=== PATIENT | male | born 1985 | race Caucasian/White ===

== ENCOUNTER 2016-06-02 08:26 | Day surgery (SDC) | payer OTHER ==
[~2016-06-02] VITALS: Ht 180.3 cm; Wt 83.9 kg
--- NOTE | 2016-06-02 06:59 | PCM.HPANE ---
Patient Data Surgeon Admitting Provider: Attending Provider:Juan R Bustamante MD Primary Care Physician:Nopcp Other Provider: Reason for Visit Abdominal Pain Ht/WT & BMI Body Mass Index Allergies Coded Allergies: ibuprofen (Verified Allergy, Intermediate, Abdominal Pain, 03/18/16) Past Anesthesia History Anesthesia History: Denies:: Anesthesia Reactions Diabetes History Hx Diabetes?: No MRSA MRSA: No Medications Active Scripts Hyoscyamine Sulfate (Levsin)0.125 Mg Tab0.125 Mg PO TID PAIN #14 TAB Prov:Nolberto Doty MD 03/18/16 Omeprazole 20 Mg Tablet.dr20 Mg PO DAILY #60 TABLET Ref 2 Prov:Javad Maldonado MD 03/15/16 Ondansetron ODT 8 Mg Tab.rapdis8 Mg PO Q4H PRN For Nausea #20 TABLET Ref 2 Prov:Javad Maldonado MD 03/15/16 Hyoscyamine SL (Levsin SL)0.125 Mg Tab.subl0.125 Mg SL TID PRN For Pain #10 TABLET Prov:Cherrie Ballesteros MD 01/11/16 History History of ENT Problems?: No Hx of Heart Problems?: Yes Cardiovascular History: Positive for:: Heart Murmur (per pt) Denies:: Cardiac Surgery Chest Pain Congestive Heart Failure Edema Hypertension Irregular Heartbeat Pacemaker Thrombophlebitis Respiratory History: Denies:: Tuberculosis Hx Neurologic Problems?: No Hx of GI Problems?: No Hx of Problems?: No Musculoskeletal History: Denies:: Back Injury Joint Replacement Musculoskeletal Trauma Hx of Psycho/Social Problems?: No Hx Surgeries?: Yes (two knee surgeries, broken bones, concussions, ) Other History: Denies:: Cancer Thyroid Disease History Blood Transfusions: Denies:: Blood Transfusions Hx Diabetes: No Hx Alcohol Use: NoHx Substance Use: No Smoking Status: Current Every Day Smoker Have You Smoked inLast 12 mo: Yes Stop/Bang Risk Assessment Category Category 1A: Patient has history of documented sleep apnea, and HAS NOT received any narcotic, sedative or anesthesia administration during this stay. Category 1B: Patient has history of documented sleep apnea, and HAS received any narcotic , sedative or anesthesia administration during this stay Category 2: Patient has SUSPECTED Obstructive Sleep Apnea, and HAS received any narcotic , sedative or anesthesia administration during this stay. Category 3: Patient has SUSPECTED Obstructive Sleep Apnea and HAS NOT received narcotic, sedative or anesthesia administration during this stay. Category 4: Outpatient in Procedural Areas with known sleep apnea or who screen positive for High Risk via the STOP/BANG questionnaire. Exam Exam General Appearance: Alert, Oriented X3, Cooperative, Severe Distress, Other ( crying) HEENT/AIRWAY: MP 2, Neck Movement (nl), Mouth Opening (nl) Lungs: Clear to Auscultation Heart: Exam Unremarkable Plan Impression Patient chart reviewed, patient interviewed and anesthestic plan with risks, benefits, and alternatives discussed, and informed consent obtained. ASA Physical Status: ASA2 Mod Systemic Disease Anesthetic Plan: GA Bene/Risks/Altern/Consents: Yes HP Complete Prior to Induction: Yes Anton Gaitan MD Jun 02, 2016 06:59
[~2016-06-02 08:26] MED LIST: HSC.125T PO; HYOS0.1281 SL; Lactated Ringer's 1,000 ML IV ONE; OMEP20TA86 PO; ONDA8TAB10 PO
[2016-06-02] MEDS ORDERED: fentaNYL-PF 50 mCg/mL 2 mL Inj ONE (08:27)
[2016-06-02] MEDS ORDERED: Glycopyrrolate 0.2 mg/mL 5 mL Inj ONE (08:27)
[2016-06-02] MEDS ORDERED: Ketamine 10 mg/mL 20 mL Inj ONE (08:27)
[2016-06-02] MEDS ORDERED: Propofol 10,000 mCg/mL 20 mL Inj ONE (08:27)
[2016-06-02 08:51] VITALS: BP 132/85; PULSE 71; RESP 22; O2SAT 99
[2016-06-02] MEDS ORDERED: 0.9% Sodium Chloride 1,000 ML IV PRN (09:24)
[2016-06-02] MEDS ORDERED: Sodium Chloride LOK Flush 10 mL Syringe IV PRN (09:25)
[2016-06-02] MEDS ORDERED: fentaNYL-PF 50 mCg/mL 2 mL Inj IVPUSH PRN (09:25)
--- NOTE | 2016-06-02 10:02 | PCM.ENDEGD ---
EGD Date of Service: Jun 02, 2016 Physician Juan R Bustamante MD Indication for Procedure Nausea vomiting Post Procedure Dx & Findings: Irregular Z line Procedure Esophagogastroduodenoscopy PROCEDURE IN DETAIL: The patient was placed in left lateral decubitus position. Bite block was placed. Scope lubricated, placed in posterior pharynx, passed through the cricopharyngeus and esophagus, slowly advanced the entire length of the gastric pouch, pylorus was identified, scope passed through the pylorus and descending portion of duodenum, withdrawn in the antrum, retroflexed upon itself for view of fundus and cardia. Scope was then withdrawn through the oropharynx. Esophagus was unremarkable except at the Z line, there was irregularity which raises the possibility of short segment Lima's esophagus. Four-quadrant biopsies done. The length of the Lima's was less than 2 cm. However there was no evidence of ulcers edema inflammation. Stomach was essentially normal with normal gastric folds and normal-appearing mucosa. Retroflexion was done which visualized the cardia and fundus. Body of the stomach as well as the antrum and pylorus were visualized. Stomach was easily inflatable and deflated using air. We advanced further into the distal duodenum which was unremarkable with normal-appearing mucosa with healthy appearing villi. Impression Irregular Z line rule out Lima's esophagus status post 4 quadrant biopsies. No clear etiology for her nausea vomiting noted from the EGD. Recommendation Await biopsy results Follow up in GI clinic and will review the rest of the tests that was ordered in the clinic. Presedation Assessment Risks and Benefits Informed consent was obtained from the patient after all risks and benefits including but not limited to drug reaction, infection, pain, bleeding, perforation, as well as alternatives were discussed. Patient monitoring Continuous pulse oximetry, cardiac monitoring, blood pressure monitoring, IV access, and oxygen at 2L per nasal cannula. Complications There were no periprocedural complications identified. Post Procedure Plan Post Procedure Recommendations 1. Restrict activities today. 2. Resume normal activities in the morning. 3. Resume medications. 4. GERD behavioral modification: - Avoid fatty, acidic, spicy, large meals - Do not lie down after meals - Do not eat or drink anything for at least 2 1/2 hours before going to bed at night - Discontinue tobacco and alcohol - Decrease or avoid caffeine - Avoid chocolate and mints - Decrease weight - Avoid aspirin and non steroidal anti-inflammatory agents (NSAID) such as Aleve, Advil, Mobic, Naproxen, Ibuprofen, etc 5. Add proton pump inhibitor. Take 30 minutes before 1st meal of the day. 6. Patient informed of normal post procedure side effects as bloating, drowsiness, blood streaking in the stool 7. If gastric biopsy reveal H.pylori, continue with appropriate treatment 8. If small bowel biopsy reveals celiac, continue with appropriate treatment 9. Please don't hesitate to call me with any questions Juan R Bustamante MD Jun 02, 2016 10:02
[2016-06-02 10:04] VITALS: BP 152/101; PULSE 68; RESP 16; O2SAT 100
[2016-06-02 10:15] VITALS: BP 137/101; PULSE 71; RESP 15; O2SAT 100
--- NOTE | 2016-06-02 10:29 | PCM.ANEP1 ---
Post Anesthesia Phase 1 PACU Phase 1 Assessment Date of Service: Jun 02, 2016 Vital Signs Vital Signs Date Time Temp Pulse Resp B/P Pulse Ox O2 Delivery O2 Flow Rate FiO2 06/02/16 10:04 68 16 152/101 100 Room Air 06/02/16 08:51 71 22 132/85 99 Room Air Anesthetic Administered: GA Level of Alertness: Awake, talking HOBSON's with Equal Strength: Yes Pain: No Nausea or Vomiting: No Oxygen Delivery: Room Air Lungs: Normal Air Movement Anton Gaitan MD Jun 02, 2016 10:29
[2016-06-02 10:30] VITALS: BP 136/96; PULSE 64; RESP 15; O2SAT 98
--- NOTE | 2016-06-02 10:30 | PCM.ANEP2 ---
Post Anesthesia Evaluation ASA/CMS Post Anesthesia VS in Patient's Normal Range?: Yes Resp Stable; Airway Patent?: Yes CV Function & Hydration Stable: Yes Mental Status Recovered?: Yes Pain control Satisfactory?: Yes N/V Control Satisfactory?: Yes Anton Gaitan MD Jun 02, 2016 10:30
[2016-06-02 10:39] VITALS: BP 144/87; PULSE 68; RESP 15; O2SAT 97
--- NOTE | 2016-06-03 14:04 | PATH ---
SURGICAL PATHOLOGY Attending Physician:Juan R Bustamante M.D. CASE STATUS: Signed Out PATIENT NAME: KSENIA SOL PID: [id number] : 1985 DATE COLLECTED:06/02/2016 18:46 SPECIMEN: Esophagus, Biopsy CLINICAL HISTORY: A: GE JUNCTION R/O BARRETTS FINAL DIAGNOSIS: 1.BIOPSIES, GASTROESOPHAGEAL JUNCTION: FRAGMENTS OF SQUAMOUS MUCOSA AND GASTRIC CARDIA-TYPE MUCOSA WITH CHRONIC INFLAMMATION AND REACTIVE EPITHELIAL CHANGES. NEGATIVE FOR SPECIALIZED METAPLASIA OF ANTONIO' S-TYPE ESOPHAGUS. NEGATIVE FOR DYSPLASIA AND MALIGNANCY. EOSINOPHILS ARE NOT INCREASED. ICD10 CODE K21.0 NOTE: The changes present within this biopsy are not at all specific, however, they would be consistent with alterations secondary to chronic reflux. GROSS DESCRIPTION: The specimen is received in one formalin filled container labeled with the patient's name, sublabeled "GE junction" and consists of 3 portions of tissue which aggregate to 0.3 x 0.3 x 0.2 CM. The specimen is entirely submitted in one cassette. 06/02/2016 [facility] MICRO DESCRIPTION: See diagnosis. ICD-9 CODES: CPT CODES: 1: 83967 Electronically Signed Out Nolberto Alberts MD [facility] [address], [place] [address] Technical component performed at [facility], [facility] [address], [place], [address]
== END 2016-06-02 23:59 | disposition home or self-care (01) ==
LOC: END 08:26
PROVIDERS: ATTEND Internal Medicine
DX: K22.9 Disease of esophagus, unspecified (principal); R10.13 Epigastric pain; R11.0 Nausea; R63.4 Abnormal weight loss
CPT/HCPCS: 43239; J2250; J7120